=== PATIENT | male | born 1975 | race Caucasian/White ===

== ENCOUNTER 2018-05-14 17:56 | Inpatient (IN) | payer OTHER ==
[~2018-05-14] VITALS: Ht 177.8 cm; Wt 68.0 kg
--- NOTE | 2018-05-14 19:30 | NUR ---
INTAKE ASSESSMENT BP: 138/94, HR:116, RR:18, SpO2:98%, T:98 Pt is in stable condition and is able to be admitted on the unit. Unit protocols regarding medications and vital signs Q4H were explained. Pt verbalized understanding. Will continue admission upon arrival on the unit.
[2018-05-14 20:00] VITALS: BP 149/101
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
[2018-05-14] MEDS ORDERED: ONDANSETRON ODT 4 MG TAB.RAPDIS SL PRN (20:15)
[2018-05-14] MEDS ORDERED: LORAZEPAM 1 MG TABLET PO PRN (20:15)
[2018-05-14] MEDS ORDERED: MAG HYDROX/AL HYDROX/SIMETH 30 ML LIQUID UDC PO PRN (20:15)
[2018-05-14] MEDS ORDERED: IBUPROFEN 600 MG TABLET PO PRN (20:15)
[2018-05-14] MEDS ORDERED: LORAZEPAM 2 MG/1 ML VIAL IM PRN (20:15)
[2018-05-14] MEDS ORDERED: LOPERAMIDE HCL 2 MG CAPSULE PO PRN ×2 (20:15)
[2018-05-14] MEDS ORDERED: THIAMINE HCL 200 MG/2 ML VIAL IM ONE (20:15)
[2018-05-14] MEDS ORDERED: diphenhydrAMINE 50 MG CAPSULE PO PRN (20:15)
[2018-05-14] MEDS ORDERED: HYDROXYZINE PAMOATE 25 MG CAPSULE PO PRN (20:15)
[2018-05-14] MEDS ORDERED: MAGNESIUM HYDROXIDE 30 ML LIQUID UDC PO PRN (20:15)
[2018-05-14] MEDS ORDERED: CLONIDINE HCL 0.1 MG TABLET PO PRN (20:15)
[2018-05-14] MEDS ORDERED: ASPI81TA31 PO (20:17)
[2018-05-14] MEDS ORDERED: GABA-532 PO (20:17)
[2018-05-14 20:58] LABS: *AMPHETAMINE, URINE NEGATIVE (NEGATIVE); *BARBITURATE, URINE NEGATIVE (NEGATIVE); *CANNABINOID, URINE POSITIVE (NEGATIVE); *COCCAINE, URINE NEGATIVE (NEGATIVE); *OPIATE, URINE NEGATIVE (NEGATIVE); *PHENCYCLIDINE SCREEN,URINE POSITIVE (NEGATIVE)
[2018-05-14] MEDS: LORAZEPAM 1 MG TABLET PO PRN (21:46)
--- NOTE | 2018-05-14 21:46 | NUR ---
PRN Medication Administration Patient is noted with increased anxiety, restlessness, increased sweats, agitation and is noted pacing his room. CIWA 14. PRN Ativan 1mg administered. Will continue to monitor.
[2018-05-14 22:19] LABS: BASOPHILS # (AUTO) 0.1 K/uL (0.0-8.0); BASOPHILS % (AUTO) 0.6 % (0.0-2.0); EOSINOPHILS # (AUTO) 0.1 K/uL (0.0-0.7); EOSINOPHILS % (AUTO) 0.7 % (0.0-7.0); HEMATOCRIT 38.5 % (36.7-47.1); HEMOGLOBIN 13.7 g/dL (12.5-16.3); LYMPHOCYTES # (AUTO) 3.2 K/uL (20.0-40.0); LYMPHOCYTES % (AUTO) 37.9 % (20.5-51.5); MEAN CORPUSCULAR HEMOGLOBIN 33.9 uug (23.8-33.4); MEAN CORPUSCULAR HGB CONC 36 g/dL (32.5-36.3); MEAN CORPUSCULAR VOLUME 95.3 fL (73.0-96.2); MONOCYTES # (AUTO) 0.5 K/uL (2.0-10.0); MONOCYTES % (AUTO) 5.8 % (0.0-11.0); NEUTROPHILS # (AUTO) 4.7 K/uL (1.8-8.9); PLATELET COUNT (AUTO) 206 K/uL (152-348); RED BLOOD CELL COUNT(AUTO) 4.04 MIL/uL (4.06-5.63); WHITE BLOOD COUNT (AUTO) 8.6 K/uL (3.6-10.2)
[2018-05-14 22:35] LABS: ALANINE AMINOTRANSFERASE 33 U/L (16-63); ALKALINE PHOSPHATASE 171 U/L (50-136); AMYLASE 60 U/L (25-115); ASPARTATE AMINOTRANSFERASE 28 U/L (15-37); BILIRUBIN,TOTAL 1.3 mg/dL (0.2-1.0); CARBON DIOXIDE 27 mmol/L (21-32); CHLORIDE 100 mmol/L (98-107); CREATININE 0.9 mg/dL (0.6-1.3); GLUCOSE 249 mg/dL (74-106); LIPASE 61 U/L (73-393); MAGNESIUM 1.4 mg/dL (1.8-2.4); POTASSIUM 3.4 mmol/L (3.5-5.1); TOTAL PROTEIN, SERUM 7.5 g/dL (6.4-8.2); UREA NITROGEN, BLOOD 8 mg/dL (7-18)
[2018-05-14 22:43] LABS: ETHANOL < 3 MG/DL (0-0)
[2018-05-14 22:46] LABS: THYROID STIMULATING HORMONE 1.769 mIU/mL (0.358-3.740)
--- NOTE | 2018-05-14 22:46 | NUR ---
PRN Medication Reassessment Patient is noted in bed, awake, alert and verbally responsive. Breathing even and non labored. patient is able to verbalize "the medication must have helped. Im in bed and going to try to get some rest." PRN Ativan 1mg noted to be effective. Will continue to monitor.
[2018-05-14] MEDS ORDERED: POTASSIUM CHLORIDE 20 MEQ TAB.PRT.SR PO ONE (23:00)
[2018-05-14] MEDS ORDERED: MAGNESIUM OXIDE 400 MG TABLET PO ONE (23:00)
--- NOTE | 2018-05-14 23:35 | NUR ---
Lab Results Patients blood drawn and labs resulted with potassium 3.4 and magnesium 1.4. Relayed to MD with new orders for KDUR 40meq one time now and Mag Ox 800mg one time now. Patient able to tolerate well with no complications noted. Will continue to monitor.
[2018-05-15 00:05] VITALS: BP 123/89
[2018-05-15 04:00] VITALS: BP 125/87
--- NOTE | 2018-05-15 04:00 | NUR ---
CIWA Patient is noted in bed with eyes closed. Breathing even and non labored. No signs of restlessness or facial grimacing noted. CIWA not able to be completed as per order. Will continue to monitor.
--- NOTE | 2018-05-15 07:40 | NUR ---
End of Shift Patient is noted in bed with eyes closed. Breathing even and non labored. no restlessness or discomfort noted. patient continues on PRN medications for increased signs and symptoms of withdrawal. Patients lab values resulted with potassium 3.4 and magnesium 1.4 with one time orders from MD for KDUR 40meq and Mag Ox 800mg. Patient tolerated well. Patient also received PRN Ativan 1mg with medication noted to be effective. Last noted CIWA 9. Patient noted to sleep a total of 7 hours.
[2018-05-15 08:00] VITALS: BP 124/85
--- NOTE | 2018-05-15 08:00 | NUR ---
Start of Shift Notes/CIWA Assessment: Received report from night nurse. Patient is a 43 year old male admitted during the night for ETOH withdrawal who was placed on PRNs at this time. Per night report, patient was given Ativan 1 mg PO was given with last CIWA 9 and slept for 6 hours. Received patient in his room. Awake, alert and verbally responsive. Oriented x 4. Denies AV hallucinations or S/I or H/I. He complains of blurred vision and states that this has been going on with or without ETOH at home. He appears anxious by repeating the same questions over and over again and requires further education on management of DM. Patient appears flushed with sweats, and gross tremors with complains of mild pins and needle sensation to his LE due to neuropathy. CIWA 14, upon this assessment. Educated patient on his current plan of care for the day and his medication regimen. Encouraged oral fluid intake and encouraged group participation to learn new skills to prevent relapse. All needs met and attended. Will continue to monitor.
[2018-05-15] MEDS: LORAZEPAM 1 MG TABLET PO PRN (08:39)
[2018-05-15] MEDS: FOLIC ACID 1 MG TABLET PO SCH (08:39)
[2018-05-15] MEDS: THIAMINE HCL 100 MG TABLET PO SCH (08:39)
--- NOTE | 2018-05-15 08:39 | NUR ---
Ativan 1 mg PO given: Ativan 1 mg PO given for CIWA 14. Patient was noted with increased anxiety, sweats, gross tremors and paresthesia to BLE. Will monitor for effectiveness.
[2018-05-15] MEDS: MULTIVITAMINS,THERAPEUTIC TABLET PO SCH (08:40)
[2018-05-15] MEDS ORDERED: TUBERCULIN,PURIF.PROT.DERIV. 5 TU/0.1 ML TEST ID ONE (09:00)
--- NOTE | 2018-05-15 09:16 | NUR ---
Home medication: Patient reports that he was supposed to be taking Metformin 500 mg PO BID an Amaryl 2 mg daily, however, because of a change in his current insurance and PCP he was not able to refill these medications. made aware.
[2018-05-15] MEDS ORDERED: METF-440 PO (09:20)
[2018-05-15] MEDS ORDERED: GLIM2TAB PO (09:20)
--- NOTE | 2018-05-15 09:39 | NUR ---
Re-assessment: Ativan 1 mg CIWA 8, patient is barely sweating, less anxiety and agitation noted. He continues to complain of mild paresthesia. PRN Ativan 1 mg PO was effective.
[2018-05-15 12:00] VITALS: BP 125/83
--- NOTE | 2018-05-15 12:45 | NUR ---
CIWA Assessment: CIWA 4, patient continues to present with mild sweats, anxiety, agitation and paresthesia. Offered PRNs. Oral fluids encouraged. Will continue to monitor.
[2018-05-15] MEDS: GLIMEPIRIDE 2 MG TABLET PO SCH (13:30)
[2018-05-15] MEDS: GABAPENTIN 100 MG CAPSULE PO SCH ×2 (13:30→17:15)
[2018-05-15] MEDS: METFORMIN HCL 500 MG TABLET PO SCH ×2 (13:30→17:15)
--- NOTE | 2018-05-15 13:35 | NUR ---
Additional home medication: Patient verbalizes that he also takes Aspirin 81 mg PO PRN for chest pain. Patient states "One of my friends told me to take Aspirin 81 mg when I need it if I feel a little tingle on my chest and it helps me a lot." Patient continues to require further education on managing his health. He reports that it has been challenging to see a doctor in [place] due to his insurance and he also reports being non-compliant with his medications, he states "I just forget." made aware.
[2018-05-15] MEDS ORDERED: GABA-532 PO (15:03)
[2018-05-15 16:00] VITALS: BP 131/86
[2018-05-15 18:16] LABS: MAGNESIUM 1.7 mg/dL (1.8-2.4); POTASSIUM 4.2 mmol/L (3.5-5.1)
--- NOTE | 2018-05-15 19:06 | NUR ---
End of Shift Notes: Patient continues to be on PRNs to manage symptoms related to ETOH withdrawal. VS monitored closely. No significant abnormalities noted. Withdrawal symptoms were closely monitored. Initial CIWA 14, patient presented with gross tremors, anxiety, agitation, paresthesia, restlessness and generalized discomfort. Medicated patient with Ativan 1 mg PO as ordered at 0839 with help. Last CIWA 4. Patient was started on Metformin, Amaryl and Gabapentin as ordered. Appetite good. Mag level 1.7L endorsed to incoming nurse. Patient will be discharging tomorrow. All needs met and attended. Will continue to monitor closely.
--- NOTE | 2018-05-15 19:30 | NUR ---
Start of Shift Patient Received. Patient continues on PRN medications for increased signs and symptoms of withdrawal. Patient is set for discharge tomorrow morning 05/16/18. Patient was started on Metformin 500 mg BID and Glimepiride 2mg Daily for DM II. Labs resulted with magnesium noted to be 1.7 with MD made aware, currently awaiting orders for replacement. All needs attended to promptly. Will continue plan of care as ordered.
[2018-05-15 20:00] VITALS: BP 129/88
[2018-05-16 00:30] VITALS: BP 119/69
--- NOTE | 2018-05-16 00:30 | NUR ---
CIWA Assessment Patient is noted in bed with eyes closed. Breathing even and non labored. No facial grimacing noted. Vitals rendered. CIWA unable to be completed as per order. WIll continue to monitor.
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
[2018-05-16 04:08] LABS: HEPATITIS B SURFACE AG Negative (Negative)
[2018-05-16 05:05] VITALS: BP 126/83
--- NOTE | 2018-05-16 05:14 | NUR ---
PRN medication Administration patient is noted awake and verbalizing increase restless legs and anxiety. PRN Motrin and Vistaril administered. Will continue to monitor.
--- NOTE | 2018-05-16 06:19 | NUR ---
PRN Medication Reassessment Patient is noted in bed with eyes closed. breathing even and non labored. No signs of restlessness or facial grimacing noted. PRN Vistaril and Motrin noted to be effective. Will continue to monitor.
--- NOTE | 2018-05-16 07:25 | NUR ---
End of Shift Patient is noted in bed sleeping. Breathing even and non labored. Patient received PRN medications for increased signs and symptoms of withdrawal. Patient is set for discharge this morning. He continues on Metformin 500 mg BID and Glimepiride 2mg Daily for DM II. Labs resulted with magnesium noted to be 1.7 with MD made aware, will endorse to supplement. All needs attended to promptly. Will endorse to continue plan of care as ordered.
--- NOTE | 2018-05-16 07:30 | NUR ---
Start of Shift Print Cutter received report on 43 year old male admitted to [facility] on 05/14/18 for medical management of ETOH withdrawals. Pt endorses NKA, full code and regular diet. Endorses a PMH of DM II and lower extremity neuropathy. Denies PPH. Pt on no taper and is preparing for discharge this morning. Last CIWA 6, per NOC report. Pt was administered PRN Vistaril(anxiety) and Motrin(pain) on NOC, per report. Print Cutter encounters pt in pts room with pt resting with eyes closed. Even and unlabored respirations noted. Bed in low position, with wheels locked and side rails up x2. Will continue to monitor, support and encourage according to plan of care.
--- NOTE | 2018-05-16 08:00 | NUR ---
CIWA 5 Pt is anxious and restless with fine tremors. Will continue to monitor, support and encourage according to plan of care.
[2018-05-16] MEDS: GABAPENTIN 100 MG CAPSULE PO SCH (08:30)
[2018-05-16] MEDS: THIAMINE HCL 100 MG TABLET PO SCH (08:30)
[2018-05-16] MEDS: MULTIVITAMINS,THERAPEUTIC TABLET PO SCH (08:30)
[2018-05-16] MEDS: METFORMIN HCL 500 MG TABLET PO SCH (08:30)
[2018-05-16] MEDS: FOLIC ACID 1 MG TABLET PO SCH (08:30)
[2018-05-16] MEDS: GLIMEPIRIDE 2 MG TABLET PO SCH (08:30)
[2018-05-16 08:38] VITALS: BP 114/77
--- NOTE | 2018-05-16 09:37 | NUR ---
Discharge Assessment Pt is A/O x4 and able to make needs known. Clear thought and speech process. Flat affect with depressed mood. Pt denies SI/HI or A/VH. Pt is calm and cooperative. VS WNL, last CIWA 5. Pt educated on importance of continued sobriety and need for follow-up care. Pt educated on discharge educational material and all prescribed discharge mediations. Pt educated on name, route, timing, dose and indication of all prescribed medications. Pt provided with copies all discharge paperwork, including MD notes, orders and lab values. Pt signed for and was returned home medications and all personal belongings. Pt denies any further comments, questions or concerns.
== END 2018-05-16 09:37 | disposition home or self-care (01) | DRG 897 ==
LOC: SRC 17:56
PROVIDERS: ADMIT Family Medicine Addiction Medicine; ATTEND Family Medicine Addiction Medicine
PROC: HZ2ZZZZ Detoxification Services for Substance Abuse Treatment (ICD-10-PCS; principal; 2018-05-14)
DX: F10.230 Alcohol dependence with withdrawal, uncomplicated (principal); Y90.0 Blood alcohol level of less than 20 mg/100 ml; E11.41 Type 2 diabetes mellitus with diabetic mononeuropathy; Z79.84 Long term (current) use of oral hypoglycemic drugs; Z79.82 Long term (current) use of aspirin; Z79.899 Other long term (current) drug therapy; F12.10 Cannabis abuse, uncomplicated; E83.42 Hypomagnesemia; E87.6 Hypokalemia; F41.9 Anxiety disorder, unspecified
CPT/HCPCS: 36415; 80307; 80349; 83690; 83735; 84443; 85025; 86580; 86592; 86705; 86803; 87340; 87806; G0480